=== PATIENT | male | born 1990 | race African-American/Black ===

== ENCOUNTER 2017-01-19 14:12 | Emergency (ER) | payer SELFPAY ==
[~2017-01-19] VITALS: Ht 172.7 cm; Wt 67.1 kg
[~2017-01-19 14:12] MED LIST: B-1100 MG PO; LIBRIUM25 MG PO
[2017-01-19] MEDS ORDERED: PREDNISONE20 MG PO (16:31)
[2017-01-19 17:26] VITALS: BP 122/82
== END 2017-01-19 17:28 | disposition home or self-care (01) ==
LOC: EME 14:12
DX: L56.2 Photocontact dermatitis [berloque dermatitis] (principal); F17.210 Nicotine dependence, cigarettes, uncomplicated
CPT/HCPCS: 99281; 99284; J7512